=== PATIENT | male | born 1980 | race Caucasian/White ===

== ENCOUNTER 2024-09-28 10:31 | Outpatient (CLI) | payer MEDICARE, OTHER ==
[~2024-09-28] VITALS: Ht 185.4 cm; Wt 117.9 kg
[2024-09-28 11:15] VITALS: PULSE 69; RESP 16; O2SAT 98
[2024-09-28] MEDS: albuterol 2.5 MG/3 ML nebule NEB ONE (11:25)
[2024-09-28 11:27] VITALS: PULSE 67; RESP 15
== END 2024-09-28 23:59 | disposition home or self-care (01) ==
LOC: RT 10:31
PROVIDERS: ATTEND Registered Nurse
DX: R06.00 Dyspnea, unspecified (principal); R05.9 Cough, unspecified
CPT/HCPCS: 94060; 94760